=== PATIENT | female | born 1995 | race Two or more races ===

== ENCOUNTER 2017-02-09 06:20 | Emergency (ER) | payer OTHER ==
[~2017-02-09] VITALS: Ht 160 cm; Wt 54.4 kg
[2017-02-09] MEDS ORDERED: TRIPLE ANTIBIOTIC OINTMENT TP ONE (06:57)
--- NOTE | 2017-02-09 07:05 | ER.PDOC ---
General Chief Complaint: Skin Rash/Abscess Stated Complaint: POSSIBLE SPIDER BITE ON LEFT FOOT Time seen by MD: 07:00 Source: patient Exam Limitations: no limitations History of Present Illness Initial Comments abrasion/blister L ankle for 3 days Timing/Duration: unsure Severity: mild Location: LLE Quality: itchy Identified Cause: no Past Medical History Medical History: no pertinent history Surgical History: no surgical history LMP (females 10-50): last week Family History Significant Family History: no pertinent family hx Social History Smoking: greater than 1 pack/day Alcohol Use: occassionally Drug Use: marijuana Constitutional: denies fever Skin: lesions, rash All Other Systems: Reviewed and Negative Physical Exam General Appearance: alert, no distress Skin: tender indurated area, with erythema, lesion Location: LLE Character: maculopapular, erythematous Extremities: non-tender, nml ROM, no edema EENT: eyes nml inspection, lips/gums nml, pharynx nml Neck: trachea midline, no swelling Respiratory: no resp. distress, breath sounds nml CVS: reg. rate & rhythm, heart sounds nml Abdomen: non-tender, no organomegaly NEURO/PSYCH: oriented x 3, CN's nml as tested, motor nml, sensation nml, mood/ affect nml Progress Progress c/w cellulitis will treat with abx Departure Time of Disposition: 07:04 Disposition: 01 HOME, SELF-CARE Impression: Primary Impression: Cellulitis Condition: Stable Referrals: PCP,UNKNOWN (PCP) PRIMARY CARE PROVIDER HERNÁN HARDIN Dr[address] MD Feb 09, 2017 07:05
[2017-02-09 07:11] VITALS: BP 116/78
== END 2017-02-09 07:11 | disposition home or self-care (01) ==
LOC: ER 06:20
DX: L03.116 Cellulitis of left lower limb (principal); F17.210 Nicotine dependence, cigarettes, uncomplicated; F12.10 Cannabis abuse, uncomplicated
CPT/HCPCS: 99283